=== PATIENT | female | born 1970 | race Caucasian/White ===

== ENCOUNTER 2017-08-17 14:55 | Emergency (ER) | payer BC ==
[2017-08-17 15:42] VITALS: BP 139/72
--- NOTE | 2017-08-17 16:17 | ED ---
Respiratory - HPI Summary HPI Summary: 46 yr old female with the complaint of cough, sore throat. Onset a day ago. She is exposed to many with cough and cold symptoms. No other complaints. - History of Current Complaint Chief Complaint: UCRespiratory Stated Complaint: THROAT Time Seen by Provider: 08/17/17 15:49 Pain Intensity: 3 - Allergy/Home Medications Allergies/Adverse Reactions: Allergies Allergy/AdvReac Type Severity Reaction Status Date / Time NSAIDS (Non-Steroidal Allergy Hives Verified 08/17/17 15:42 Anti-Inflamma Home Medications: Home Medications Omeprazole CAP* [Prilosec CAP* 20 MG] 20 mg PO DAILY 08/17/17 [History Confirmed 08/17/17] PMH/Surg Hx/FS Hx/Imm Hx Endocrine/Hematology History: Denies: Hx Diabetes Respiratory History: Denies: Hx Asthma - Surgical History Surgery Procedure, Year, and Place: VERTICAL SLEEVE GASTRECTOMY--2011. TUBAL LIGATION--2000. C-SECT. UMBILICAL HERNIA REPAIR--2003. LEFT EYE CORRECTION-- 2005. LLE TENDON TIGHTENED--1977 Infectious Disease History: No Infectious Disease History: Denies: Traveled Outside the [place] in Last 30 Days - Family History Known Family History: Negative: Respiratory Disease - Social History Alcohol Use: Occasionally Substance Use Type: Reports: None Smoking Status (MU): Never Smoked Tobacco Review of Systems Constitutional: Negative Positive: Sore Throat Positive: Cough All Other Systems Reviewed And Are Negative: Yes Physical Exam Triage Information Reviewed: Yes Vital Signs On Initial Exam: Initial Vitals Temp Pulse Resp BP Pulse Ox 98.3 F 83 16 139/72 99 08/17/17 15:40 08/17/17 15:40 08/17/17 15:40 08/17/17 15:40 08/17/17 15:40 Vital Signs Reviewed: Yes Appearance: Positive: Well-Appearing, No Pain Distress Skin: Positive: Warm Eyes: Positive: EOMI ENT: Positive: Pharyngeal erythema, Nasal congestion, TMs normal Neck: Positive: Nontender Respiratory/Lung Sounds: Positive: Clear to Auscultation, Breath Sounds Present Cardiovascular: Positive: RRR. Negative: Murmur Abdomen Description: Positive: Nontender Musculoskeletal: Positive: Strength/ROM Intact Neurological: Positive: Sensory/Motor Intact, Alert, Oriented to Person Place, Time, CN Intact II-III Psychiatric: Positive: Normal - Ivelisse Coma Scale Best Eye Response: 4 - Spontaneous Best Motor Response: 6 - Obeys Commands Best Verbal Response: 5 - Oriented Coma Scale Total: 15 Diagnostics - Vital Signs Vital Signs Temp Pulse Resp BP Pulse Ox 08/17/17 15:40 98.3 F 83 16 139/72 99 - Laboratory Lab Results: Lab Results 08/17/17 08/17/17 Range/Units 15:57 15:58 Influenza A (Rapid) Negative (Negative) Influenza B (Rapid) Negative (Negative) Group A Strep Rapid Negative (Negative) Lab Statement: Any lab studies that have been ordered have been reviewed, and results considered in the medical decision making process. Disposition - Course Course Of Treatment: 46 yr old female with uri symptoms. DC home. - Diagnoses Provider Diagnoses: Upper respiratory infection Discharge - Discharge Plan Condition: Good Disposition: HOME Patient Education Materials: Upper Respiratory Infection (ED) Referrals: Sangita Wright MD [Primary Care Provider] -
== END 2017-08-17 16:23 | disposition home or self-care (01) ==
LOC: UCCORT 14:55
DX: J06.9 Acute upper respiratory infection, unspecified (principal); R03.0 Elevated blood-pressure reading, without diagnosis of hypertension
CPT/HCPCS: 87502; 87651; 99211; G0463

== ENCOUNTER 2017-09-12 12:33 | Emergency (ER) | payer BC ==
[2017-09-12 12:47] VITALS: BP 156/80
--- NOTE | 2017-09-12 13:28 | UC ---
Ear Complaint HPI - HPI Summary HPI Summary: ear pain left side > right for few days now seen pcp and stated she had fluid in her ear. taking tylenol otc tried marcia pot didnt like. had sore throat, and nasal congestion, denies fever at this time. - History of Current Complaint Chief Complaint: UCEar Stated Complaint: BILATERAL EAR PAIN Time Seen by Provider: 09/12/17 13:21 Hx Obtained From: Patient Hx Last Menstrual Period: 09/06/17 ?: No Onset/Duration: Lasting Days Severity Initially: Moderate Severity Currently: Moderate Pain Intensity: 4 Aggravating Factors: Heat Alleviating Factors: OTC Meds - Allergies/Home Medications Allergies/Adverse Reactions: Allergies Allergy/AdvReac Type Severity Reaction Status Date / Time NSAIDS (Non-Steroidal Allergy Hives Verified 09/12/17 12:42 Anti-Inflamma PMH/Surg Hx/FS Hx/Imm Hx Previously Healthy: Yes - Surgical History Surgical History: Yes Surgery Procedure, Year, and Place: VERTICAL SLEEVE GASTRECTOMY--2011. TUBAL LIGATION--2000. C-SECT. UMBILICAL HERNIA REPAIR--2003. LEFT EYE CORRECTION-- 2005. LLE TENDON TIGHTENED--1977. bariatric - Family History Known Family History: Negative: Respiratory Disease - Social History Occupation: Employed Full-time Alcohol Use: Occasionally Substance Use Type: None Smoking Status (MU): Never Smoked Tobacco Have You Smoked in the Last Year: No - Immunization History Most Recent Influenza Vaccination: APR 2014 Review of Systems Skin: Negative Eyes: Negative ENT: Sore Throat, Ear Ache, Sinus Congestion Respiratory: Cough - nonprod Cardiovascular: Negative Gastrointestinal: Negative Genitourinary: Negative Musculoskeletal: Negative Neurological: Negative Psychological: Negative Is Patient Immunocompromised?: No All Other Systems Reviewed And Are Negative: Yes Physical Exam Triage Information Reviewed: Yes Appearance: Ill-Appearing Vital Signs: Initial Vital Signs Temp 98.1 F 09/12/17 12:43 Pulse 113 09/12/17 12:43 Resp 20 09/12/17 12:43 BP 156/80 09/12/17 12:43 Pulse Ox 97 09/12/17 12:43 Vital Signs Reviewed: Yes Eye Exam: Normal ENT: Positive: Pharyngeal erythema, Nasal congestion, TM bulging - left, TM red - left Respiratory Exam: Normal Cardiovascular Exam: Normal Neurological Exam: Normal Psychological Exam: Normal Skin Exam: Normal Ear Complaint Course/Dx - Course Course Of Treatment: take abx with food to reduce gi upset - full course. continue drinking lots of fluids dialy to prevent dehydration. tylenol xs po every 8 hours prn pain/fever. f/u prn - Differential Dx/Diagnosis Provider Diagnoses: otitis media left ear. sinusitis Discharge - Sign-Out/Discharge Documenting (check all that apply): Discharge - Discharge Plan Condition: Good Disposition: HOME Prescriptions: Amoxicillin PO (*) [Amoxicillin 875 MG (*)] 875 mg PO BID 10 Days #20 tab Patient Education Materials: Sinusitis (ED), Ear Infection (ED) Referrals: Sangita Wright MD [Primary Care Provider] - 1 Week - Billing Disposition and Condition Condition: GOOD Disposition: HOME
== END 2017-09-12 13:36 | disposition home or self-care (01) ==
LOC: UCCORT 12:33
DX: H66.92 Otitis media, unspecified, left ear (principal); J32.9 Chronic sinusitis, unspecified; Z88.8 Allergy status to other drugs, medicaments and biological substances
CPT/HCPCS: 99212; G0463

== ENCOUNTER 2018-11-28 16:50 | Emergency (ER) | payer BC ==
[2018-11-28 17:21] VITALS: BP 125/74
--- NOTE | 2018-11-28 17:30 | UC ---
Respiratory Complaint HPI - HPI Summary HPI Summary: 48 yo female presents with sore throat, sinus pain/pressure/congestion, and dry cough for the last week. She has been taking OTC cold medicine with no relief. She is eating and drinking well. Tolerating po without difficulty. Denies fever , chills, SOB, rash. - History of Current Complaint Chief Complaint: UCGeneralIllness Stated Complaint: SORE THROAT, COUGH Time Seen by Provider: 11/28/18 17:30 Hx Obtained From: Patient Hx Last Menstrual Period: currently Onset/Duration: Gradual Onset Severity Initially: Mild Severity Currently: Moderate Pain Intensity: 5 - Allergies/Home Medications Allergies/Adverse Reactions: Allergies Allergy/AdvReac Type Severity Reaction Status Date / Time NSAIDS (Non-Steroidal Allergy Hives Verified 11/28/18 17:21 Anti-Inflamma Home Medications: Home Medications Ascorbic Acid TAB* [Vitamin C TAB*] 1 tab PO DAILY 11/28/18 [History Confirmed 11/28/18] Biotin 1 dose PO DAILY 11/28/18 [History Confirmed 11/28/18] Cholecalciferol TAB* [Vitamin D TAB*] 1 tab PO DAILY 11/28/18 [History Confirmed 11/28/18] Cyanocobalamin TAB* [Vitamin B12 TAB*] 500 mcg PO DAILY 11/28/18 [History Confirmed 11/28/18] Pantoprazole TAB * [Protonix TAB*] 40 mg PO BID 11/28/18 [History Confirmed 04/08] PMH/Surg Hx/FS Hx/Imm Hx - Additional Past Medical History Additional PMH: Gastric Bypass status GI/ History: Gastroesophageal Reflux - Surgical History Surgical History: Yes Surgery Procedure, Year, and Place: VERTICAL SLEEVE GASTRECTOMY--2011. TUBAL LIGATION--2000. C-SECT. UMBILICAL HERNIA REPAIR--2003. LEFT EYE CORRECTION-- 2005. LLE TENDON TIGHTENED--1977. CHOLECYSTECTOMY-2016. march 2018 - gastric sleeve revised to rou en y - Family History Known Family History: Positive: Non-Contributory Negative: Respiratory Disease - Social History Occupation: Employed Full-time Lives: With Family Alcohol Use: Occasionally Substance Use Type: None Smoking Status (MU): Never Smoked Tobacco Have You Smoked in the Last Year: No - Immunization History Most Recent Influenza Vaccination: APR 2014 Review of Systems All Other Systems Reviewed And Are Negative: Yes Constitutional: Positive: Negative Skin: Positive: Negative Eyes: Positive: Negative ENT: Positive: Sore Throat, Nasal Discharge, Sinus Congestion, Sinus Pain/ Tenderness Respiratory: Positive: Cough Cardiovascular: Positive: Negative Gastrointestinal: Positive: Negative Neurovascular: Positive: Negative Neurological: Positive: Negative Psychological: Positive: Negative Physical Exam - Summary Physical Exam Summary: GENERAL: NAD. WDWN. No pain distress. SKIN: No rashes, sores, lesions, or open wounds. HEENT: Head: AT/NC Eyes: Conjunctiva clear without inflammation or discharge. Ears: Hearing grossly normal. TMs intact, no bulging, erythema, or edema. Nose: Nasal mucosa pink and moist. TTP maxillary and frontal sinus. Positive post nasal drip Throat: Posterior oropharynx without exudates, erythema, or tonsillar enlargement. Uvula midline. NECK: Supple. Nontender. No lymphadenopathy. CHEST: CTAB. No r/r/w. No accessory muscle use. Breathing comfortably and in no distress. CV: RRR. Without m/r/g. Pulses intact. NEURO: Alert. PSYCH: Age appropriate behavior. Triage Information Reviewed: Yes Vital Signs: Initial Vital Signs Temp 98.2 F 11/28/18 17:17 Pulse 65 11/28/18 17:17 Resp 16 11/28/18 17:17 BP 125/74 11/28/18 17:17 Pulse Ox 100 11/28/18 17:17 Vital Signs Reviewed: Yes Respiratory Course/Dx - Course Course Of Treatment: Sinusitis. Discussed bacterial vs viral causes with pt and she prefers to be on anbx at this time. - Differential Dx/Diagnosis Provider Diagnosis: Rhinosinusitis Discharge - Sign-Out/Discharge Documenting (check all that apply): Patient Departure All imaging exams completed and their final reports reviewed: No Studies - Discharge Plan Condition: Stable Disposition: HOME Prescriptions: Amoxicillin PO (*) [Amoxicillin 500 MG CAP*] 500 mg PO Q12H #14 cap Benzonatate CAP* [Tessalon 100 MG CAP*] 100 mg PO TID PRN #21 cap PRN Reason: Cough Patient Education Materials: Sinusitis (ED) Referrals: Sangita Wright MD [Primary Care Provider] - Additional Instructions: If you develop a fever, shortness of breath, chest pain, new or worsening symptoms - please call your PCP or go to the ED immediately. - Billing Disposition and Condition Condition: STABLE Disposition: Home
== END 2018-11-28 17:43 | disposition home or self-care (01) ==
LOC: UCEAST 16:50
DX: N39.0 Urinary tract infection, site not specified (principal); F17.210 Nicotine dependence, cigarettes, uncomplicated; Z88.0 Allergy status to penicillin
CPT/HCPCS: 99212; G0463

== ENCOUNTER 2019-08-04 14:08 | Emergency (ER) | payer BC ==
[2019-08-04 14:18] VITALS: BP 127/76
--- NOTE | 2019-08-04 14:45 | UC ---
Throat Pain/Nasal Ángel HPI - HPI Summary HPI Summary: 48 yo female presents with URI symptoms. She tells me that over the last 3 days she has had sinus pain/pressure/congestion and sore throat. She has been using a nettipot and taking OTC cold medications with little relief. She denies fever , chills, cough, SOB, body aches. - History of Current Complaint Chief Complaint: UCGeneralIllness Stated Complaint: SORE THROAT EAR PAIN COUGH Time Seen by Provider: 08/04/19 14:45 Hx Obtained From: Patient Hx Last Menstrual Period: 07/04/19 Onset/Duration: Sudden Onset Severity: Mild Pain Intensity: 4 Pain Scale Used: 0-10 Numeric - Allergies/Home Medications Allergies/Adverse Reactions: Allergies Allergy/AdvReac Type Severity Reaction Status Date / Time NSAIDS (Non-Steroidal Allergy Hives Verified 08/04/19 14:19 Anti-Inflamma PMH/Surg Hx/FS Hx/Imm Hx GI/ History: Gastroesophageal Reflux - Surgical History Surgical History: Yes Surgery Procedure, Year, and Place: VERTICAL SLEEVE GASTRECTOMY--2011. TUBAL LIGATION--2000. C-SECT. UMBILICAL HERNIA REPAIR--2003. LEFT EYE CORRECTION-- 2005. LLE TENDON TIGHTENED--1977. CHOLECYSTECTOMY-2017. march 2018 - gastric sleeve revised to rou en y - Family History Known Family History: Positive: Non-Contributory Negative: Respiratory Disease - Social History Occupation: Employed Full-time Lives: With Family Alcohol Use: Occasionally Substance Use Type: None Smoking Status (MU): Never Smoked Tobacco Have You Smoked in the Last Year: No - Immunization History Most Recent Influenza Vaccination: APR 2014 Vaccination Up to Date: Yes Review of Systems All Other Systems Reviewed And Are Negative: No Constitutional: Positive: Negative Skin: Positive: Negative Eyes: Positive: Negative ENT: Positive: Sore Throat, Nasal Discharge, Sinus Congestion, Sinus Pain/ Tenderness Respiratory: Positive: Negative Cardiovascular: Positive: Negative Gastrointestinal: Positive: Negative Neurological/Mental Status: Positive: Negative Psychological: Positive: Negative Physical Exam - Summary Physical Exam Summary: GENERAL: NAD. WDWN. No pain distress. SKIN: No rashes, sores, lesions, or open wounds. HEENT: Head: AT/NC Eyes: EOM intact. Conjunctiva clear without inflammation or discharge. Ears: Hearing grossly normal. TMs intact, no bulging, erythema, or edema. Nose: Nasal mucosa pink and moist. NTTP maxillary and frontal sinus. Throat: Posterior oropharynx without exudates, erythema, or tonsillar enlargement. Uvula midline. NECK: Supple. Nontender. No lymphadenopathy. CHEST: CTAB. No r/r/w. No accessory muscle use. Breathing comfortably and in no distress. CV: RRR. Pulses intact. Cap refill <2seconds NEURO: Alert. PSYCH: Age appropriate behavior. Triage Information Reviewed: Yes Vital Signs: Initial Vital Signs Temp 98.8 F 08/04/19 14:14 Pulse 82 08/04/19 14:14 Resp 18 08/04/19 14:14 BP 127/76 08/04/19 14:14 Pulse Ox 100 08/04/19 14:14 Vital Signs Reviewed: Yes Throat Pain/Nasal Course/Dx - Course Course Of Treatment: POC strep negative. Suspect viral illness. Advised supportive care - Differential Dx/Diagnosis Provider Diagnosis: Viral syndrome Discharge ED - Sign-Out/Discharge Documenting (check all that apply): Patient Departure All imaging exams completed and their final reports reviewed: No Studies - Discharge Plan Condition: Stable Disposition: HOME Patient Education Materials: Viral Syndrome (ED) Referrals: Sangita Wright MD [Primary Care Provider] - Additional Instructions: Your symptoms are likely from a viral infection. Viral infections do not respond to antibiotics and are limited to the treatment of symptoms. Viral infections typically run their course in 7-10 days. Drink plenty of fluids, especially if you are running any fever. Use salt water gargles several times a day. Take over the counter acetaminophen (Tylenol) or ibuprofen (Advil, Motrin) according to directions as needed for pain or fever. You may also use Chloraseptic spray or Cepacol lonzenges according to directions which contain a numbing medication and can provide some temporary relief from a sore throat. Return here or follow up with your primary care provider in 7 days if symptoms persist. - Billing Disposition and Condition Condition: STABLE Disposition: Home
--- NOTE | 2019-08-07 12:24 | UC ---
- Progress Note Progress Note: Pt called today. She has not been feeling any better and her right ear pain is worse. She has tried the OTC medications as recommended on discharge. Will call in anbx for her at this time. Course/Dx - Diagnoses Provider Diagnoses: Viral syndrome Discharge ED - Sign-Out/Discharge Documenting (check all that apply): Patient Departure All imaging exams completed and their final reports reviewed: No Studies - Discharge Plan Condition: Stable Disposition: HOME Prescriptions: Amoxicillin PO (*) [Amoxicillin 875 MG (*)] 875 mg PO BID #14 tab Patient Education Materials: Viral Syndrome (ED) Referrals: Sangita Wright MD [Primary Care Provider] - Additional Instructions: Your symptoms are likely from a viral infection. Viral infections do not respond to antibiotics and are limited to the treatment of symptoms. Viral infections typically run their course in 7-10 days. Drink plenty of fluids, especially if you are running any fever. Use salt water gargles several times a day. Take over the counter acetaminophen (Tylenol) or ibuprofen (Advil, Motrin) according to directions as needed for pain or fever. You may also use Chloraseptic spray or Cepacol lonzenges according to directions which contain a numbing medication and can provide some temporary relief from a sore throat. Return here or follow up with your primary care provider in 7 days if symptoms persist. - Billing Disposition and Condition Condition: STABLE Disposition: Home
== END 2019-08-04 14:53 | disposition home or self-care (01) ==
LOC: UCEAST 14:08
DX: B34.9 Viral infection, unspecified (principal); J02.9 Acute pharyngitis, unspecified; R09.89 Other specified symptoms and signs involving the circulatory and respiratory systems; R09.81 Nasal congestion; Z88.6 Allergy status to analgesic agent
CPT/HCPCS: 87651; 99211; G0463